=== PATIENT | male | born 2000 | race Caucasian/White ===

== ENCOUNTER 2022-11-12 16:02 | Emergency (ER) | payer OTHER ==
[~2022-11-12] VITALS: Ht 193 cm; Wt 71.7 kg
[~2022-11-12 16:02] MED LIST: LOPE2C PO; ONDA8ODT MM; RXONDA4ODT MM
== END 2022-11-12 17:33 | disposition home or self-care (01) ==
LOC: ER 16:02
DX: M79.631 Pain in right forearm (principal); F17.210 Nicotine dependence, cigarettes, uncomplicated; Z79.899 Other long term (current) drug therapy
CPT/HCPCS: 99283